=== PATIENT | male | born 1965 | race Caucasian/White ===

== ENCOUNTER 2018-05-22 13:10 | Emergency (ER) | payer BC ==
[~2018-05-22] VITALS: Ht 172.7 cm; Wt 90.0 kg
[2018-05-22 13:18] VITALS: Ht 172.7 cm; Wt 90.0 kg
[2018-05-22 13:33] VITALS: O2SAT 98
[2018-05-22] MEDS ORDERED: ASPIRIN 81 MG CHEW PO STA (13:40)
[2018-05-22] MEDS ORDERED: NITROGLYCERIN 2% OINTMENT 30GM TUBE EXT ONE (13:45)
--- NOTE | 2018-05-22 13:55 | EMERGENCY ROOM VISIT NOTE ---
History Report prepared by Willardibgaby: Ame Rm Under the Supervision of: Dr. Go Adams M.D. First contact with patient: 13:28 Chief Complaint: CHEST PAIN Stated Complaint: CHEST PAIN/DISCOMFORT L ARM PAIN History of Present Illness The patient is a 52 year old male who presents to the Emergency Room with complaints of intermittent chest left pain for the past 1 week. He describes his pain as feeling like indigestion and states the pain is "dull" in nature. He rates his discomfort as a 5/10 in severity. Yesterday, the patient states that his left arm felt "not right, weak, like if you slept on it." This pain radiates to his left shoulder blade, and feels "sharp" in nature. He has not noticed his chest pain worsening with exertion and denies any shortness of breath. He has been minimally nauseous but has not vomited. He has a history of bilateral carotid artery surgery earlier this year, due to "blockages" and states he began taking Atorvastatin 6 years ago. He has never undergone a cardiac catheterization. His primary care physician is with a [facility] group in [place]. Also, he sees Dr. Manzano, a vascular surgeon, with [facility] in [place]. The patient denies any family history of NM's. Source of History: patient Onset: 1 week [employer]ILRO[employer] Position: chest Symptom Intensity: 5/10 Quality: dull Timing: intermittent Associated Symptoms: + nausea, No SOB, No vomiting Review of Systems See HPI for pertinent positives & negatives. A total of 10 systems reviewed and were otherwise negative. Past Medical & Surgical Medical Problems: (1) Carotid artery stenosis (2) Hypertension Social History Smoking Status: Never Smoker Current/Historical Medications Scheduled Aspirin (Aspirin Chewable), 81 MG PO DAILY Atorvastatin (Lipitor), 1 TAB PO DAILY Miscellaneous Medications Lisinopril/Hctz (Zestoretic 20MG/12.5MG), 1 TAB PO Allergies Coded Allergies: No Known Allergies (Unverified , 05/22/18) Physical Exam Vital Signs Date Time Temp Pulse Resp B/P (MAP) Pulse Ox O2 Delivery O2 Flow Rate FiO2 05/22/18 17:51 36.5 78 18 126/81 96 05/22/18 16:31 142/86 05/22/18 16:10 75 15 97 05/22/18 16:01 130/79 05/22/18 15:31 120/83 05/22/18 15:10 59 18 96 05/22/18 15:02 122/78 05/22/18 14:37 53 18 118/75 96 Room Air 05/22/18 14:31 118/75 05/22/18 14:10 56 14 99 05/22/18 14:01 133/82 05/22/18 14:00 55 18 142/81 98 Room Air 05/22/18 13:40 61 05/22/18 13:34 95 Room Air 05/22/18 13:33 98 Room Air 05/22/18 13:32 142/81 05/22/18 13:18 36.5 60 20 148/86 98 Room Air Physical Exam GENERAL: Patient is in no acute distress. HEENT: No acute trauma, normocephalic atraumatic, mucous membranes moist, no nasal congestion, no scleral icterus. NECK: No stridor, no adenopathy, no meningismus, trachea is midline. LUNGS: Clear to auscultation bilaterally, no wheeze, no rhonchi, breath sounds equal. CHEST: Non-tender chest wall HEART: Without murmurs gallops or rubs, regular rate and rhythm. ABDOMEN: Soft, nontender, bowel sounds positive, no hernias, no peritonitis. EXTREMITIES: No cyanosis or edema, full range of motion of all the joints without pain or difficulty, no signs for acute trauma. NEUROLOGIC: Oriented x 3, no acute motor or sensory deficits, no focal weakness. SKIN: No rash, no jaundice, no diaphoresis. Medical Decision & Procedures ER Provider Diagnostic Interpretation: Radiology results as stated below per my review and radiologist interpretation: CHEST ONE VIEW PORTABLE CLINICAL HISTORY: Atypical chest pain COMPARISON STUDY: No previous studies for comparison. FINDINGS: The cardiac and mediastinal contours are normal. There is no evidence of focal pulmonary consolidation. There is no evidence of failure. No pleural effusions are visualized. IMPRESSION: No active disease in the chest. Electronically signed by: Chino Singer M.D. 05/22/2018 2:04 PM Laboratory Results 05/22/18 14:04 05/22/18 14:04 Test 05/22/18 14:04 05/22/18 17:02 Red Blood Count 4.97 M/uL (4.7-6.1) Mean Corpuscular Volume 91.8 fL (80-100) Mean Corpuscular Hemoglobin 31.4 pg (25-34) Mean Corpuscular Hemoglobin Concent 34.2 g/dl (32-36) RDW Standard Deviation 45.7 fL (36.4-46.3) RDW Coefficient of Variation 13.6 % (11.5-14.5) Mean Platelet Volume 9.8 fL (7.4-10.4) Prothrombin Time 10.3 SECONDS (9.0-12.0) Prothromb Time International Ratio 1.0 (0.9-1.1) Activated Partial Thromboplast Time 26.8 SECONDS (21.0-31.0) Partial Thromboplastin Ratio 1.0 Anion Gap 8.0 mmol/L (3-11) Est Creatinine Clear Calc Drug Dose 109.5 ml/min Estimated GFR () 115.3 Estimated GFR (Non- 99.5 BUN/Creatinine Ratio 17.2 (10-20) Calcium Level 8.2 mg/dl (8.5-10.1) Total Bilirubin 0.5 mg/dl (0.2-1) Aspartate Amino Transf (AST/SGOT) 29 U/L (15-37) Alanine Aminotransferase (ALT/SGPT) 54 U/L (12-78) Alkaline Phosphatase 72 U/L (45-117) Total Protein 7.5 gm/dl (6.4-8.2) Albumin 3.7 gm/dl (3.4-5.0) Globulin 3.8 gm/dl (2.5-4.0) Albumin/Globulin Ratio 1.0 (0.9-2) Lipase 108 U/L (73-393) Troponin I < 0.015 ng/ml (0-0.045) Laboratory results reviewed by me. Medications Administered Medications (Trade) Dose Ordered Sig/Radha Route Start Time Stop Time Status Last Admin Dose Admin Nitroglycerin (Nitroglycerin 2% Oint) 1 inch NOW ONCE EXT 05/22/18 13:45 05/22/18 13:46 DC 05/22/18 14:05 1 INCH Aspirin (Aspirin Chew) 324 mg NOW STAT PO 05/22/18 13:40 05/22/18 13:42 DC 05/22/18 14:04 324 MG ECG Per My Interpretation Indication: chest pain Rate (beats per minute): 65 Rhythm: normal sinus Findings: other (ST elevation, no PVC) ED Course 1333: The patient was evaluated in room C1. A complete history and physical exam was performed. 1340: Aspirin 324 mg PO. 1345: Nitroglycerin 2% 1 inch EXT. 1519: I discussed the patients case with Emelina Gallegos Cardiology. He recommends a repeat Troponin at 4 hours after arrival and if its OK, the patient can follow up as an outpatient. 1535: I reevaluated the patient. He is resting comfortably. I discussed his results and discharge instructions and he verbalized complete understanding and agreement. Medical Decision The differential diagnoses considered include: Musculoskeletal pain, angina, PE , NM, indigestion, pneumothorax, anemia There is no leukocytosis or concerning anemia. No significant electrolyte abnormality, kidney failure or hepatitis. No coagulopathy. EKG shows a normal sinus rhythm, no acute ischemia. Cardiac enzyme testing 2 is not consistent with acute cardiac injury. No pancreatitis. Chest film does not show pneumonia , pneumothorax or mediastinal widening. On exam, the patient's pain was not reproducible. The patient received oral aspirin and Nitropaste, he has been resting comfortably since. I discussed the case with the metal annealer cotton seed culler. The metal annealer felt that if the patient's troponin at 4 hours was still negative, he could be discharged with outpatient follow-up. The troponin was in fact negative at 4 hours. Patient will be discharged. He will continue his aspirin and I will add some Zantac in case there is a reflux component to his symptoms. He will return for any worsening symptoms or pain. He will avoid strenuous exercise and take it easy. He will see cardiology this upcoming week. Medication Reconcilliation Current Medication List: was personally reviewed by me Blood Pressure Screening Patient's blood pressure: Elevated blood pressure Blood pressure disposition: Elevated BP felt to be situational Consults Time Called: 1516 Consulting Physician: Emelina Gallegos Cardiology Returned Call: [phone] I discussed the patients case with Emelina Gallegos Cardiology. He recommends a repeat Troponin at 4 hours after arrival and if it's OK, the patient can follow up as an outpatient. Impression Primary Impression: Left sided chest pain Scribe Attestation The scribe's documentation has been prepared under my direction and personally reviewed by me in its entirety. I confirm that the note above accurately reflects all work, treatment, procedures, and medical decision making performed by me. Departure Information Dispostion Home / Self-Care (ERASED) Patient Instructions My [facility] Additional Instructions take it easy no serious exercise or exertion try zantac 2x per day for now continue the aspirin daily see cardiology this week--call thursday for appt return for worsening pain or symptoms as we discussed heart testing today was all ok
[2018-05-22] MEDS ORDERED: ATOR-26 PO (13:59)
[2018-05-22] MEDS ORDERED: ASPCH81X PO (13:59)
[2018-05-22] MEDS ORDERED: LISI-787 PO (13:59)
--- NOTE | 2018-05-22 14:05 | DIAGNOSTIC IMAGING REPORT ---
CHEST ONE VIEW PORTABLE CLINICAL HISTORY: Atypical chest pain COMPARISON STUDY: No previous studies for comparison. FINDINGS: The cardiac and mediastinal contours are normal. There is no evidence of focal pulmonary consolidation. There is no evidence of failure. No pleural effusions are visualized.[ IMPRESSION: No active disease in the chest. Electronically signed by: Chino Singer M.D. 05/22/2018 2:04 PM Dictated Date/Time: 05/22/2018 2:04 PM
[2018-05-22 14:36] LABS: HEMATOCRIT 45.6 % (42-52); HEMOGLOBIN 15.6 g/dL (14.0-18.0); MEAN CELL VOLUME 91.8 fL (80-100); MEAN CORPUSCULAR HEMOGLOBIN 31.4 pg (25-34); MEAN CORPUSCULAR HGB CONC 34.2 g/dl (32-36); MEAN PLATELET VOLUME 9.8 fL (7.4-10.4); PLATELET COUNT 255 K/uL (130-400); RED CELL DISTRIBUTION WIDTH CV 13.6 % (11.5-14.5); RED CELL DISTRIBUTION WIDTH SD 45.7 fL (36.4-46.3); WHITE BLOOD COUNT 6.18 K/uL (4.8-10.8)
[2018-05-22 14:41] LABS: PTT PATIENT 26.8 SECONDS (21.0-31.0)
[2018-05-22 14:58] LABS: ALBUMIN 3.7 gm/dl (3.4-5.0); ALKALINE PHOSPHATASE 72 U/L (45-117); ALT/SGPT 54 U/L (12-78); AST/SGOT 29 U/L (15-37); BLOOD UREA NITROGEN 15 mg/dl (7-18); CALCIUM 8.2 mg/dl (8.5-10.1); CARBON DIOXIDE 26 mmol/L (21-32); CREATININE 0.85 mg/dl (0.60-1.40); GLUCOSE 90 mg/dl (70-99); LIPASE 108 U/L (73-393); POTASSIUM 4.1 mmol/L (3.5-5.1); SODIUM 138 mmol/L (136-145); TOTAL PROTEIN 7.5 gm/dl (6.4-8.2)
[2018-05-22 17:51] VITALS: BP 126/81; PULSE 78; TEMP 36.5; O2SAT 96
== END 2018-05-22 17:51 | disposition home or self-care (01) ==
LOC: C.EDB 13:12 → C.EDC 17:51
DX: R07.9 Chest pain, unspecified (principal); I10 Essential (primary) hypertension; I65.23 Occlusion and stenosis of bilateral carotid arteries; Z79.82 Long term (current) use of aspirin; Z79.899 Other long term (current) drug therapy